=== PATIENT | male | born 1945 | race Caucasian/White ===

== ENCOUNTER → 2017-11-07 14:09 | Outpatient (CLI) | payer MEDICARE, SELFPAY ==
--- NOTE | 2017-11-07 | DI.MRI.S_ITS ---
PROCEDURE: MR KNEE LT WO CON INDICATIONS: OSTEOARTHRITIS OF LEFT KNEE. PAIN TECHNIQUE: Noncontrast sagittal PD fast spin echo and T2 fast spin echo with fat saturation, sagittal 3-D FLASH with fat saturation; coronal T1 spin echo and PD fast spin echo with fat saturation, and axial PD fast spin echo with fat saturation through the knee. COMPARISON: None. FINDINGS: Image quality: Excellent. Menisci: Lateral meniscus intact. Medial meniscal tear involving the posterior horn free margin, as well as the body where there is marked truncation of the free margin and partial extrusion. Abnormal intrameniscal signal extends to the superior and inferior articular surfaces. Cruciate ligaments: Anterior cruciate ligament demonstrates a thinned appearance, raising possibility of partial rupture probably involving the anteromedial band which is not well-seen and this could be a chronic finding, technically indeterminate. Medial structures: The medial collateral ligament appears intact. However there is soft tissue edema which could be reactive to medial compartment degeneration and pathology, versus low-grade sprain. The posterior oblique ligament, semimembranosus tendon insertions, oblique popliteal ligament, and meniscocapsular junction appear intact. Visualized portions of the pes anserinus tendons appear normal. No abnormal bursal fluid. Lateral structures: The lateral collateral ligament, long and short heads of the biceps femoris tendon appear intact. The popliteus tendon appears normal; the popliteofibular ligament appears intact. The posterosuperior and anteroinferior popliteomeniscal fascicles appear intact. The arcuate and fabellofibular ligaments appear intact, on either side of the lateral inferior geniculate artery. Iliotibial band appears normal. Anterior structures: The quadriceps tendon appears intact although low-grade insertional tendinopathy and thickening. There is also low grade proximal patellar tendinopathy and thickening. Minimal internal signal change seen at the distal patellar tendon. Patellar alignment is normal. No femoral trochlear dysplasia or ventral trochlear prominence. No edema in the infrapatellar fat pad. Bones and cartilage: No bone marrow contusions or fractures. Within the medial compartment, there is diffuse near full thickness loss of the femoral and tibial articular cartilage. Within the lateral compartment, there is central surface fraying and signal change of the femoral and tibial articular cartilage. Within the patellofemoral compartment, there is near full-thickness loss of cartilage overlying the medial patellar facet. There is also fissuring and partial-thickness loss of the cartilage overlying the lateral patellar facet and median patellar ridge. Central femoral trochlear cartilage internal signal change, without focal defect. There is also partial-thickness loss of the cartilage overlying the posterior medial femoral condyle as seen on axial pulse sequences. Joint space: No pathologic joint effusion identified. No Larson's cyst is seen. No intra-articular loose bodies noted. IMPRESSION: Medial meniscal tear involving the body and posterior horn with mild partial extrusion. Suspect partial rupture of the anterior cruciate ligament (technically age indeterminate although probably chronic) in particular involving the anteromedial band which is not well-visualized. Please correlate clinically and to exam findings. Distal quadriceps and proximal patellar tendinopathy. Tricompartmental joint degeneration as above, most pronounced in the medial and patellofemoral compartments. Dictated by: Jorge Gary M.D. on 11/07/2017 at 15:10 Approved by: Jorge Gary M.D. on 11/07/2017 at 15:20
== END ==
PROVIDERS: Visit Provider Orthopaedic Surgery
DX: S83.242A Other tear of medial meniscus, current injury, left knee, initial encounter (principal); M17.12 Unilateral primary osteoarthritis, left knee
CPT/HCPCS: 73721

== ENCOUNTER 2017-12-10 11:10 | Day surgery (SDC) | payer MEDICARE, SELFPAY ==
[2017-11-18 08:38] VITALS: BMI 29.3
[2017-12-10] VITALS (11 sets, daily range): BP systolic 124–158; BP diastolic 65–96; PULSE 73–94; RESP 10–18; TEMP 35.9–36.7; O2SAT 93–98; BMI 29.3
--- NOTE | 2017-12-10 06:00 | DI.RAD.S_ITS ---
PROCEDURE: XR KNEE LT 1TO2V INDICATIONS: prosthesis placement TECHNIQUE: 2 view(s) of the knee acquired. COMPARISON: [facility] Juan Dawson, CR, XR KNEE STANDING BILATERAL, 10/23/2017, 11:41. FINDINGS: Bones: Patient is status post knee joint arthroplasty. Hardware components are in expected positions. Visualized bony structures are intact. Soft tissues: Overlying postoperative changes are noted. IMPRESSION: Expected appearance following left knee arthroplasty. Dictated by: Jefferson Ornelas M.D. on 12/10/2017 at 15:17 Approved by: Jefferson Ornelas M.D. on 12/10/2017 at 15:17
[2017-12-10] MEDS: LACTATED RINGERS 1,000 ML 42 ML IV (11:49)
[2017-12-10] MEDS: CELECOXIB 200 MG CAPSULE PO (11:50)
[2017-12-10] MEDS: ACETAMINOPHEN 325 MG TABLET 975 MG PO ×2 (11:50→16:21)
[2017-12-10] MEDS: PREGABALIN 75 MG CAPSULE PO (11:50)
--- NOTE | 2017-12-10 12:07 | PM.PREOP ---
Pre-operative Note Interval Note Pre-op Check: Yes History & Physical Reviewed by Physician and Yes Exam Performed Changes: No
--- NOTE | 2017-12-10 12:08 | PM.OP.1 ---
Operative Date/Time/Diagnoses Date of procedure: 12/10/17 Time of procedure: 14:36 Pre-op diagnosis: Left knee osteoarthritis Post-op diagnosis: same Procedure & Clinicians Procedure: Left total knee arthroplasty Same procedure as scheduled: Yes Indications: The patient presents today for total knee arthroplasty after failure of conservative treatment. The nature of the procedure including the risks and benefits, alternatives, postoperative course and expected outcome were discussed and all questions answered. Consent was obtained. Operative site confirmed and marked. Surgeon: Cholo Anguiano Lamp Tester And Inspector: Dwight Kim Anesthesia Type: General, Spinal and Local Operative Notes Findings: Severe osteoarthritis with varus alignment. Closure Type: primary Specimen(s): none sent Implants & Drains: and Nephew Salazar BCS: 5 femoral component, 5 tibial component, 9 mm BCS polyethylene tray and 35 x 9 mm round patella Applied: implant(s) Estimated Blood Loss (mL): 100 Blood products transfused: none Tourniquet time (min): 21 Procedure in detail: The patient was taken to the operative suite and placed under general and spinal anesthesia. The patient was given prophylactic antibiotics prior to surgery. The patient was also given tranexamic acid, 1 g, just prior to surgery for postoperative hemostasis. The lateral knee was prepped and the joint injected with 20 mL of 1% Lidocaine with epinephrine. The knee was then prepped and draped in usual sterile fashion. The leg was exsanguinated with an Esmarch dressing and the tourniquet raised to 250 torr. A 15 cm anterior incision was made. Next a medial trivector arthrotomy was made. The extensor mechanism was marked to ensure accurate repair. Initial exposing dissection was carried out medially and laterally. The knee was then extended and the patellar thickness was measured and a cut made removing approximately 9 mm of bone with a goal of restoring normal patellar thickness. The patella was then sized and drilled. Some excess lateral bone was excised and the patellofemoral ligament released. The tourniquet was then released. The knee was then flexed and the & Nephew Visionaire femoral guide was placed. The anterior pins were placed and the distal rotation holes drilled. The distal cutting guide was placed and the templated distal femoral cut was made. The templating cutting block was then placed and the anterior, posterior and chamfer cuts made. The & Nephew [employer] tibial guide was placed and the alignment checked along the axis of the proximal tibial with a eran. The proximal tibial cut was then made with an oscillating saw. All meniscus and bony debris was then removed. Flexion extension gaps were checked. The knee was tight in both flexion and extension. Another 2 mm of tibia was resected which then gave adequate and symmetric space. No specific balancing was required other than routine exposure and removal of osteophytes. The soft tissues were then injected with a combination of 20 mL of half percent Marcaine with epinephrine and 20 mL of Exparel. The trial components were then placed. The knee went into full extension and flexion beyond 120?. There was excellent medial- lateral balance throughout motion. Patellar tracking was excellent. The trial components were removed and size is confirmed for the final implants. The knee was then exsanguinated with an Esmarch dressing and the tourniquet reapplied for cementing. The knee was cleansed with Pulsavac irrigation and dried. The final components were cemented in with high viscosity vacuum mixed bone cement with antibiotics. The knee was held in extension and the patellar clamp until the cement had adequately cured. The knee was then irrigated with dilute Betadine solution. The extensor mechanism was closed with 5 interrupted #1 Vicryl sutures in 90 degrees of flexion. The joint was then injected with a combination of 1 g of tranexamic acid and 20 mL of quarter percent Marcaine with epinephrine. The subcutaneous tissue was closed with 2-0 Vicryl. The skin was closed with [keyana and surgical adhesive]. [ An Aquacell] dressing and Juan wrap were then applied. Complications: none Condition: stable Disposition: same day surgery Plan for aftercare: [facility] postoperative protocol for total knee arthroplasty.
[2017-12-10] MEDS: CEFAZOLIN 2 GM/100 ML FROZ.PIGGY IV (13:17)
[2017-12-10] MEDS: LIDOCAINE 1% W/EPI INJ 20 ML INJ (13:18)
[2017-12-10] MEDS: TRANEXAMIC ACID 1,000 MG VIAL 1000 MG INJ (13:28)
--- NOTE | 2017-12-10 13:39 | SUR.OPER ---
Supine on padded OR bed. Pillow under head, arms secured on padded armboards <90 degree abduction. Safety belt across torso. Non-operative leg secured with tape over blanket over lower leg. Operative leg secured in DeMayo/Enoc positioner. Foam padded brace at thigh of operative leg. Gel bump under patients left hip.
[2017-12-10] MEDS: BUPIVACAINE 0.5% (PF) 10 ML, TRANEXAMIC ACID 1,000 MG, SODIUM CHLORIDE 0.9% 20 ML INJ (13:48)
[2017-12-10] MEDS: BUPIVACAINE 0.5% W/ EPI (PF) 20 ML, BUPIVACAINE LIPOSOME 266 MG, SODIUM CHLORIDE 0.9% 2... INJ (13:48)
[2017-12-10] MEDS: POVIDONE-IODINE 15 ML, SODIUM CHLORIDE 0.9% 250 ML TOP (13:51)
[2017-12-10] MEDS: OXYCODONE IR 5 MG TABLET PO (16:21)
[2017-12-10] MEDS: LACTATED RINGERS 1,000 ML 125 ML IV (16:22)
--- NOTE | 2017-12-10 16:38 | PC.NURSE ---
patient is a&ox4, 94% on RA, rates pain 5/10 when first up to room, medicated with 5 mg oxycodone and scheduled tylenol. will reassess when appropriate. Lung sounds clear, heart rate regular, bowel tones present. patient denies nausea, SOB, and dizziness. HARRISON wrap in place and taped; no drainage observed. ice pack in place. SCD's are on. Patient reports sensation to BLE and demonstrates he can wiggle toes and lift legs off of bed. CMS intact, pulses palpable and color pink. IVF infusing as ordered. Tolerating water and ice at this time, will advance diet as tolerated as ordered.
--- NOTE | 2017-12-10 17:37 | PT.IIE ---
Current Diagnoses Unilateral primary osteoarthritis, left knee (12/10/17) Surgery Performed Operation Date: 12/10/17 12:45 Actual Procedures p Total Knee Arthroplasty(Left) - Cholo Anguiano MD Medical History (Last Updated 11/18/17 @ 09:26 by Em Cummings RN) Clavicle fracture (Acute) Depression (Acute) Diabetes (Acute) Spider bite wound (Acute) Physical Therapy Inpatient Evaluation/Re-Eval M1 PT/OT-IP Prior Functional Status Start: 12/10/17 17:22 Freq: NEEDED Status: Active Protocol: Document 12/10/17 17:23 EA (Rec: 12/10/17 17:36 EA [id number]) Medical Review Prior Functional Status Medical History Reviewed Yes Diet/Fluid Consistency Regular Communication Normal Mobility and Gait Able to ambulate > a mile with no AD, however with pain Activities of Daily Living and IADL's Independent Prior Functional Level (Other details) 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 Social History Household Members significant other none Living Arrangements Mobile home Number of Floors (Floors) One Floor Home Equipment Front Wheel Walker Raised Toilet Seat Without 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 Additional Social History Comment route delivery manager M2 PT-IP Current Condition Start: 12/10/17 17:22 Freq: NEEDED Status: Active Protocol: Document 12/10/17 17:23 EA (Rec: 12/10/17 17:36 EA [id number]) Physical Therapy Current Condition Current Condition Evaluation Date 12/10/17 Treatment Diagnosis S/P Left TKA Weight Bearing Status Weight Bearing Status Weight Bear as Tolerated M3 PT-IP Subjective Start: 12/10/17 17:22 Freq: NEEDED Status: Active Protocol: Document 12/10/17 17:23 EA (Rec: 12/10/17 17:36 EA [id number]) Subjective Physical Therapy Visit Type Type Initial Evaluation Visit Start Time 16:45 Visit Stop Time 17:30 Total Visit Minutes 45 Physical Therapy Visit Comments Patient Comments Patient states that he wants to go home tonight. Patient agreeable to ambulation practice. Short Term Goals Indep/SBA in all functional transfers and mobility Therapy Pain Assessment Pain When Pain Assessed At Rest Pain Present Pain Present Pain Reported Location Left Knee Intensity 7 Scale Used Numeric (1 - 10) Description Acute M4 PT-IP Mobility and Gait Start: 12/10/17 17:22 Freq: NEEDED Status: Active Protocol: Document 12/10/17 17:23 EA (Rec: 12/10/17 17:36 EA [id number]) PT-Bed Mobility Assessment Rolling Level of Assist Standby Assistance Supine to Sit Supine to Sit Standby Assistance Sit to Supine Sit to Supine Standby Assistance Scooting Scooting to Edge of Bed Standby Assistance PT-Transfer Assessment Sit to and From Stand Sit to and from Stand Standby Assistance Equipment Transfer Assistive Device Front Wheeled Walker Transfers Transfer Destination Bed Chair Toilet Bedside Commode Transfer Technique Stgepping transfers Transfer Ability Level of Assist Standby Assistance Comments Mobility Comments Patient requires minmal cues during turning for proper foot placement Gait Assessment Gait Gait Assistance Required: Standby Assistance Distance (Feet) (feet) 15 Able to Maintain Weight Bearing Status Yes During Gait Assistive Devices Assistive Device Front Wheeled Walker Gait Deviations General Gait Pattern Antalgic Comments Gait Comments Patient requires cues to even stride length PT-Balance Assessment Sitting Balance and Reactions Static Sitting Balance Ability Normal Dynamic Sitting Balance Ability Good Standing Balance and Reactions Static Standing Balance Ability Good Dynamic Standing Balance Ability Good M5 PT-IP Objective Assessments Start: 12/10/17 17:22 Freq: NEEDED Status: Active Protocol: Document 12/10/17 17:23 EA (Rec: 12/10/17 17:36 EA [id number]) Orientation Orientation/Cognition Level of Alertness Alert Orientation Birthday Date Year Day of Week Place Language Function Ability No Deficits Noted Safety Awareness Understands Safety Issues Memory Description No Deficits Noted Gross Range of Motion Upper Extremity ROM Assessment Within Functional Limits Lower Extremity ROM Assessment Within Functional Limits Impairments Left knee not properly assessed but with at least 0- 90 deg flex/ext Strength Upper Extremity Strength Assessment Within Functional Limits Lower Extremity Strength Assessment Within Functional Limits Knee at least 3+/5 Coordination Assessment Gross Coordination Gross Coordination WNL Assessment Finger to Nose Test Normal Performance Pronation/Supination Test Normal Performance Foot Tapping Test Normal Performance Heel on Dillon Test Normal Performance Sensation Assessment Sensation Gross Sensation WNL Light Touch Intact Proprioception (Position) Intact M6 PT-IP Treatment Start: 12/10/17 17:22 Freq: NEEDED Status: Active Protocol: Document 12/10/17 17:23 EA (Rec: 12/10/17 17:36 EA [id number]) Physical Therapy Treatment Exercises Exercises Ankle Pumps Quad Sets Heel Slides Straight Leg Raises Short Arc Quads Passive Knee Extension Hang Seated Knee Flexion/Extension Education Education Provided Precautions Weight Bearing Status Post-Op Packet Safety M7 PT-IP Assessment and Plan Start: 12/10/17 17:22 Freq: NEEDED Status: Active Protocol: Document 12/10/17 17:23 EA (Rec: 12/10/17 17:36 EA [id number]) PT Summary Assessment and Plan Potential Rehabilitation Potential Excellent Status of Condition at Evaluation Stable Summary Impairments Pain Strength Assessment Summary Patient exhibited good transfers and mobility control with no signs of instability except weakness to left LE due to pain. Patient was able to mobilize from bed and ambulate 15 ft with FWW with SBA. Patient is not a good candidate for skilled PT at this time due to high functioning. Patient is discharge to PT at this time. Recommendations To Nursing Amount of Assist Needed Standby Assistance Discharge Recommendations PT Discharge Recommendations Home with Assistance Other Discharge Recommendations Outpatient PT
--- NOTE | 2017-12-10 17:48 | PM.DS.1 ---
History of Present Illness Date Patient Seen: 12/10/17 Time Patient Seen: 17:49 Chief complaint: left total knee arthroplasty [id number] Narrative: Patient's pain is moderate to severe depending on activity level. Just up with physical therapy walking about the room. Had increased pain after physical therapy. States pain is still tolerable and wishes to go home with safe to do so. Denies fever chills. No shortness of breath or chest pain. He has not dizzy or lightheaded. He has not yet urinated. His is in the room and will be available at home to assist him. Both of them attended the [facility]. Discharge Providers Date of admission: 12/10/17 11:10 Consults: 12/10/17 16:11 Consult to Discharge Planning Routine Comment: Consult to Physical Therapy Evaluate & Treat Comment: Physician Instructions: postop TKA protocol Consult to Respiratory Therapy Evaluate & Treat Comment: Physician Instructions: Evaluate and treat 12/10/17 16:31 Consult to Respiratory Therapy Evaluate & Treat Comment: Physician Instructions: Evaluate and treat Discharge provider: Dwight Kim PA-C Summary Discharge Diagnosis: Status post left total knee arthroplasty Hospital Course: Patient failed conservative outpatient treatment for left knee osteoarthritis. Patient admitted to the hospital today for left total knee arthroplasty. Patient consented to the same. Patient taken to the operating room underwent left total knee arthroplasty. Patient back in his room recovering well and is in stable condition. Patient was able to walk about the room with physical therapy. Patient wishes to be discharged home. His is home to assist him. Patient will be discharged home today only if he is able to urinate. Status at Discharge Functional status at discharge: uses cane/walker Overall status at discharge: patient is progressing back to baseline Time Spent with Patient Less than 30 minutes Exam Vital Signs (past 8 hours): - 12/10/17 11:37 12/10/17 14:54 12/10/17 14:59 Temperature 98.0 F 97.3 F L Pulse Rate 74 75 74 Respiratory Rate 16 10 L 12 Blood Pressure 138/72 138/67 129/66 Pulse Oximetry 96 94 93 12/10/17 15:04 12/10/17 15:09 12/10/17 15:24 Temperature Pulse Rate 75 78 73 Respiratory Rate 10 L 10 L 12 Blood Pressure 124/65 137/78 141/77 H Pulse Oximetry 93 95 93 12/10/17 15:29 12/10/17 15:45 12/10/17 15:49 Temperature 97.5 F L Pulse Rate 76 77 Respiratory Rate 10 L 16 Blood Pressure 141/80 H 158/79 H Pulse Oximetry 94 94 96 12/10/17 16:36 Temperature 97.1 F L Pulse Rate 77 Respiratory Rate 16 Blood Pressure 146/81 H Pulse Oximetry 94 Fraction of Inspired Oxygen 21 Oxygen Delivery Method Room Air Oxygen Flow Rate 0 Narrative Exam Narrative: Pleasant 72-year-old male sitting comfortably in bedside chair having dinner. Patient is in no apparent distress. Left knee dressing is clean, dry and intact. Motor functions intact to the distal left lower extremity. The leg is warm and dry. Sensation is grossly intact to light touch. Discharge Plan Discharge Plan Patient Disposition: Home Discharge comment: DC home today. Patient does need to be able to urinate prior to discharge. Discharge Med Rec/Prescriptions Prescriptions: New oxycodone 5 mg capsule 5 mg PO Q3H PRN (Reason: pain) Qty: 60 RF: 0 hydroxyzine pamoate [Vistaril] 25 mg capsule 25 mg PO Q4H PRN (Reason: nausea and vomiting) Qty: 30 RF: 1 meloxicam [Mobic] 7.5 mg tablet 7.5 mg PO DAILY Qty: 30 RF: 0 Continue aspirin [Aspir-81] 81 mg Tablet,Delayed Release (Dr/Ec) 81 mg PO DAILY RF: 0 escitalopram oxalate 20 mg Tablet 20 mg PO DAILY RF: 0 Discontinued buprenorphine-naloxone [Suboxone] 2-0.5 mg Film 1 - 1.5 film BUCCAL DAILY RF: 0 Follow up/Referrals: Cholo Anguiano MD [Physician] - (SNO in 5-7 days) Provider Discharge Instructions Diet: Diet as Tolerated Activity: WBAT Cold/Heat Therapy: ice as needed Other treatments: Take aspirin 81 mg b.i.d. Tylenol 1000 mg 3 times daily Mobic 1 tab daily with food Vistaril 25 mg 1 tab p.o. every 4-6 hours. Nausea and muscle spasms Oxycodone 5 mg 1-3 every 3 hr as needed pain Skin/Wound/Dressing Care Report to your healthcare provider any signs of infection, such as:: chills, fever, night sweats, increased pain and unusual drainage Discharge Data Attending Provider: Cholo Anguiano Admit Date/Time: 12/10/17 11:10 Quality VTE Deep Vein Thrombosis/Pulmonary Embolism Present on Admission: No
--- NOTE | 2017-12-10 17:55 | P.DS_ITS ---
History of Present Illness Date Patient Seen: 12/10/17 Time Patient Seen: 17:49 Chief complaint: left total knee arthroplasty 88006 Narrative: Patient's pain is moderate to severe depending on activity level. Just up with physical therapy walking about the room. Had increased pain after physical therapy. States pain is still tolerable and wishes to go home with safe to do so. Denies fever chills. No shortness of breath or chest pain. He has not dizzy or lightheaded. He has not yet urinated. His is in the room and will be available at home to assist him. Both of them attended the [facility] joint camp. Discharge Providers Date of admission: 12/10/17 11:10 Consults: 12/10/17 16:11 Consult to Discharge Planning Routine Comment: Consult to Physical Therapy Evaluate & Treat Comment: Physician Instructions: postop TKA protocol Consult to Respiratory Therapy Evaluate & Treat Comment: Physician Instructions: Evaluate and treat 12/10/17 16:31 Consult to Respiratory Therapy Evaluate & Treat Comment: Physician Instructions: Evaluate and treat Discharge provider: Dwight Kim PA-C Summary Discharge Diagnosis: Status post left total knee arthroplasty Hospital Course: Patient failed conservative outpatient treatment for left knee osteoarthritis. Patient admitted to the hospital today for left total knee arthroplasty. Patient consented to the same. Patient taken to the operating room underwent left total knee arthroplasty. Patient back in his room recovering well and is in stable condition. Patient was able to walk about the room with physical therapy. Patient wishes to be discharged home. His is home to assist him. Patient will be discharged home today only if he is able to urinate. Status at Discharge Functional status at discharge: uses cane/walker Overall status at discharge: patient is progressing back to baseline Time Spent with Patient Less than 30 minutes Exam Vital Signs (past 8 hours): - 12/10/17 11:37 12/10/17 14:54 12/10/17 14:59 Temperature 98.0 F 97.3 F L Pulse Rate 74 75 74 Respiratory Rate 16 10 L 12 Blood Pressure 138/72 138/67 129/66 Pulse Oximetry 96 94 93 12/10/17 15:04 12/10/17 15:09 12/10/17 15:24 Temperature Pulse Rate 75 78 73 Respiratory Rate 10 L 10 L 12 Blood Pressure 124/65 137/78 141/77 H Pulse Oximetry 93 95 93 12/10/17 15:29 12/10/17 15:45 12/10/17 15:49 Temperature 97.5 F L Pulse Rate 76 77 Respiratory Rate 10 L 16 Blood Pressure 141/80 H 158/79 H Pulse Oximetry 94 94 96 12/10/17 16:36 Temperature 97.1 F L Pulse Rate 77 Respiratory Rate 16 Blood Pressure 146/81 H Pulse Oximetry 94 Fraction of Inspired Oxygen 21 Oxygen Delivery Method Room Air Oxygen Flow Rate 0 Narrative Exam Narrative: Pleasant 72-year-old male sitting comfortably in bedside chair having dinner. Patient is in no apparent distress. Left knee dressing is clean , dry and intact. Motor functions intact to the distal left lower extremity. The leg is warm and dry. Sensation is grossly intact to light touch. Discharge Plan Discharge Plan Patient Disposition: Home Discharge comment: DC home today. Patient does need to be able to urinate prior to discharge. Discharge Med Rec/Prescriptions Prescriptions: New oxycodone 5 mg capsule 5 mg PO Q3H PRN (Reason: pain) Qty: 60 RF: 0 hydroxyzine pamoate [Vistaril] 25 mg capsule 25 mg PO Q4H PRN (Reason: nausea and vomiting) Qty: 30 RF: 1 meloxicam [Mobic] 7.5 mg tablet 7.5 mg PO DAILY Qty: 30 RF: 0 Continue aspirin [Aspir-81] 81 mg Tablet,Delayed Release (Dr/Ec) 81 mg PO DAILY RF: 0 escitalopram oxalate 20 mg Tablet 20 mg PO DAILY RF: 0 Discontinued buprenorphine-naloxone [Suboxone] 2-0.5 mg Film 1 - 1.5 film BUCCAL DAILY RF: 0 Follow up/Referrals: Cholo Anguiano MD [Physician] - ([facility]NO in 5-7 days) Provider Discharge Instructions Diet: Diet as Tolerated Activity: WBAT Cold/Heat Therapy: ice as needed Other treatments: Take aspirin 81 mg b.i.d. Tylenol 1000 mg 3 times daily Mobic 1 tab daily with food Vistaril 25 mg 1 tab p.o. every 4-6 hours. Nausea and muscle spasms Oxycodone 5 mg 1-3 every 3 hr as needed pain Skin/Wound/Dressing Care Report to your healthcare provider any signs of infection, such as:: chills, fever, night sweats, increased pain and unusual drainage Discharge Data Attending Provider: Cholo Anguiano Admit Date/Time: 12/10/17 11:10 Quality VTE Deep Vein Thrombosis/Pulmonary Embolism Present on Admission: No
[2017-12-10] MEDS: HYDROMORPHONE 2 MG TABLET PO (18:09)
[2017-12-10] MEDS: IBUPROFEN 600 MG TABLET PO (18:09)
== END 2017-12-10 19:07 | disposition home or self-care (01) ==
LOC: AC 17:48 → OR 12-11 13:16
PROVIDERS: Visit Provider Orthopaedic Surgery
PROC: 0SRD0JZ Replacement of Left Knee Joint with Synthetic Substitute, Open Approach (ICD-10-PCS; CPT 27447; principal; 2017-12-10 12:45)
DX: M17.12 Unilateral primary osteoarthritis, left knee (principal); F17.210 Nicotine dependence, cigarettes, uncomplicated
CPT/HCPCS: 27447; 73560; 94762; 97161; 97530; 97535; C1776; C9290; J0690; J1100; J2250; J2405; J2704; J3010